=== PATIENT | male | born 1980 | race Caucasian/White ===

== ENCOUNTER 2019-02-28 14:26 | Emergency (ER) | payer OTHER ==
[2019-02-28 15:04] VITALS: BP 139/89; PULSE 97; RESP 16; TEMP 98.4
[2019-02-28] MEDS ORDERED: SODIUM CHLORIDE 0.9% 1,000 ML IV ONE (15:42)
--- NOTE | 2019-02-28 16:03 | CT ---
EXAMINATION TYPE: CT mastoid wo con DATE OF EXAM: 02/28/2019 COMPARISON: None HISTORY: Left sided ear pain. swelling and ringing in ear. CT DLP: 255.4 mGycm. Automated Exposure Control for Dose Reduction was Utilized. TECHNIQUE: CT scan of internal auditory canal and temporal bones is performed without contrast, thin cut axial images are obtained, coronal reformatted images are also reviewed. FINDINGS: The external auditory canals are patent bilaterally. Mastoid air cells show no evidence of abnormal opacification bilaterally. The middle ear ossicles are symmetric and unremarkable. There is no evidence of suspicious surrounding soft tissue density to suggest cholesteatoma. The scutum is preserved bilaterally. The cochlea and the semicircular canals are symmetric and unremarkable. Ves tibular aqueduct and internal carotid canal appear unremarkable. Temporomandibular joints are maintained bilaterally. Visualized paranasal sinuses are grossly clear. Visualized portion brain parenchyma is felt within normal limits. IMPRESSION: No significant abnormality seen to account for patient's symptoms.
[2019-02-28 16:31] LABS: ALT 13 U/L (21-72); AST 23 U/L (17-59); African American GFR (CKD) >90 (>60 ml/min/1.73 sqM); Albumin 3.9 g/dL (3.5-5.0); Alkaline Phosphatase 110 U/L (38-126); Anion Gap 9 mmol/L; Basophils % (A) 0 %; Blood Urea Nitrogen 12 mg/dL (9-20); Calcium 9.3 mg/dL (8.4-10.2); Carbon Dioxide 26 mmol/L (22-30); Chloride 108 mmol/L (98-107); Eosinophils # (A) 0.2 k/uL (0-0.7); Eosinophils % (A) 2 %; Glucose 82 mg/dL (74-99); HCT 40.8 % (39.0-53.0); HGB 13.9 gm/dL (13.0-17.5); Lymphocytes # (A) 1.6 k/uL (1.0-4.8); Lymphocytes % (A) 19 %; MCH 29.2 pg (25.0-35.0); MCHC 34.1 g/dL (31.0-37.0); MCV 85.4 fL (80.0-100.0); Monocytes # (A) 0.7 k/uL (0-1.0); Monocytes % (A) 9 %; Neutrophils # (A) 5.5 k/uL (1.3-7.7); Neutrophils % (A) 67 %; Platelet Count 237 k/uL (150-450); Potassium 4.2 mmol/L (3.5-5.1); RBC 4.78 m/uL (4.30-5.90); RDW 14.4 % (11.5-15.5); Sodium 143 mmol/L (137-145); Total Bilirubin 0.7 mg/dL (0.2-1.3); Total Protein 6.4 g/dL (6.3-8.2); WBC 8.2 k/uL (3.8-10.6)
--- NOTE | 2019-02-28 16:40 | ED ---
General Adult HPI - General Chief complaint: Nausea/Vomiting/Diarrhea Stated complaint: Headache/Vomiting Time Seen by Provider: 02/28/19 15:05 Source: patient Mode of arrival: wheelchair Limitations: no limitations - History of Present Illness Initial comments: 38-year-old male presenting for left ear pain. Patient states that he was diagnosed with the external ear infection and placed on Ciprodex 3 days prior. He states the swelling of the external ear has gone down. He states the pain still persists. He states it is not a headache he states it is pain of the head. He states that there is only pain localized to the posterior ear. He states that this has caused him to feel dizzy at times especially with rapid movement of the head. He states this causes him to vomit on occasion. She denies any headache neck stiffness. He denies any photophobia or uncontrolled vomiting. Patient denies any fevers. Patient states that his left hearing appears slightly muffled in a person with the right remaining review of systems negative upon arrival patient is afebrile appearing well signs of acute distress. Patient does not appear toxic. - Related Data Home Medications Medication Instructions Recorded Confirmed [id number] 1 tab PO Q6HR PRN 02/28/19 02/28/19 [Excedrin] Baclofen 10 mg PO QID 02/28/19 02/28/19 DULoxetine HCL [Cymbalta] 30 mg PO BID 02/28/19 02/28/19 Ibuprofen [Motrin] 800 mg PO TID PRN 02/28/19 02/28/19 Previous Rx's Medication Instructions Recorded Amoxicillin 500 mg PO Q12HR 10 Days #20 cap 02/28/19 Meclizine [Antivert] 25 mg PO BID 10 Days #20 tab 02/28/19 Ondansetron Odt [Zofran Odt] 4 mg PO Q8HR PRN 7 Days #21 tab 02/28/19 Allergies Allergy/AdvReac Type Severity Reaction Status Date / Time pseudoephedrine Allergy Unknown Verified 02/28/19 16:05 [From Timo] PAPER TAPE Allergy Rash/Hives Uncoded 02/28/19 16:08 Review of Systems ROS Statement: Those systems with pertinent positive or pertinent negative responses have been documented in the HPI. ROS Other: All systems not noted in ROS Statement are negative. Past Medical History Past Medical History: No Reported History History of Any Multi-Drug Resistant Organisms: None Reported Past Surgical History: Orthopedic Surgery, Tonsillectomy Past Psychological History: No Psychological Hx Reported Smoking Status: Never smoker Past Alcohol Use History: None Reported Past Drug Use History: None Reported General Exam - General Exam Comments Initial Comments: General: The patient is awake and alert, in no distress, and does not appear acutely ill. Eye: +3 mm pupils are equal, round and reactive to light, extra-ocular movements are intact. No nystagmus. There is normal conjunctiva bilaterally. No signs of icterus. No photophobia Ears, nose, mouth and throat: There are moist mucous membranes and no oral lesions. Oropharynx was not erythematous there is no tonsillar enlargement exudates or lesions. Uvula midline. Tympanic membranes are not erythematous or is no effusions bulging or retraction. Tenderness to patient the left mastoid. No evidence of swelling of the mastoid. Patient has external auditory canal drainage. Swelling. No external erythema or surrounding cellulitis of the ear. No anterior cervical lymphadenopathy. Rhinorrhea, clear and bilateral nares. No tripoding, no drooling. Neck: The neck is supple, there is no tenderness or JVD. No nuchal rigidity negative Brudzinski and Kernig Cardiovascular: There is a regular rate and rhythm. No murmur, rub or gallop is appreciated. Respiratory: Lungs are clear to auscultation, respirations are non-labored, breath sounds are equal. No wheezes, stridor, rales, or rhonchi. No retractions or abdominal breathing. Gastrointestinal: Soft, non-distended, non-tender abdomen without masses or organomegaly noted. There is no rebound or guarding present. Bowel sounds are unremarkable. Musculoskeletal: Normal ROM, no tenderness. Strength 5/5. Sensation intact. Radial pulses equal bilaterally 2+. Neurological: A&O x 3. CN II-XII intact, There are no obvious motor or sensory deficits. Coordination appears grossly intact. Speech appears normal, no muffling. Skin: Skin is warm and dry and no rashes or lesions are noted. No extremity edema Psychiatric: Cooperative Limitations: no limitations Course Vital Signs 02/28/19 15:01 Temperature 98.4 F Pulse Rate 97 Respiratory 16 Rate Blood Pressure 139/89 O2 Sat by Pulse 97 Oximetry Medical Decision Making - Medical Decision Making 38-year-old male presenting for left ear pain. Patient states he has not developed vertigo with some vomiting on occasion. Patient is no focal neurological deficits. Patient appears well. CT of the mastoid was obtained given tenderness to patient over the left mastoid. No evidence of mastoiditis. Patient denies fever afebrile upon arrival nontoxic. I do have low suspicion. However patient's examination of the extraocular canal reveals edema. Patient denies history of diabetes. There is a small amount of drainage. Patient states as improving with Ciprodex. Limited view of the tympanic membrane however visualized portion is not erythematous. Patient was evaluated by my attending provider Dr. Gary who at this time we feel patient is stable for discharge with outpatient primary care and ENT follow-up. We'll give patient an oral antibiotic as well as Antivert and Zofran for vertigo mostly secondary to the ear infection. Patient is agreeable to this care plan at discharge at this time. Patient is discharged appearing well - Lab Data Result diagrams: 02/28/19 16:05 02/28/19 16:05 Lab Results 02/28/19 02/28/19 Range/Units 16:05 16:05 WBC 8.2 (3.8-10.6) k/uL RBC 4.78 (4.30-5.90) m/uL Hgb 13.9 (13.0-17.5) gm/dL Hct 40.8 (39.0-53.0) % MCV 85.4 (80.0-100.0) fL MCH 29.2 (25.0-35.0) pg MCHC 34.1 (31.0-37.0) g/dL RDW 14.4 (11.5-15.5) % Plt Count 237 (150-450) k/uL Neutrophils % 67 % Lymphocytes % 19 % Monocytes % 9 % Eosinophils % 2 % Basophils % 0 % Neutrophils # 5.5 (1.3-7.7) k/uL Lymphocytes # 1.6 (1.0-4.8) k/uL Monocytes # 0.7 (0-1.0) k/uL Eosinophils # 0.2 (0-0.7) k/uL Basophils # 0.0 (0-0.2) k/uL Sodium 143 (137-145) mmol/L Potassium 4.2 (3.5-5.1) mmol/L Chloride 108 H (98-107) mmol/L Carbon Dioxide 26 (22-30) mmol/L Anion Gap 9 mmol/L BUN 12 (9-20) mg/dL Creatinine 0.82 (0.66-1.25) mg/dL Est GFR (CKD-EPI)AfAm >90 (>60 ml/min/1.73 sqM) Est GFR (CKD-EPI)NonAf >90 (>60 ml/min/1.73 sqM) Glucose 82 (74-99) mg/dL Calcium 9.3 (8.4-10.2) mg/dL Total Bilirubin 0.7 (0.2-1.3) mg/dL AST 23 (17-59) U/L ALT 13 L (21-72) U/L Alkaline Phosphatase 110 (38-126) U/L Total Protein 6.4 (6.3-8.2) g/dL Albumin 3.9 (3.5-5.0) g/dL Disposition Clinical Impression: Otitis externa, Vertigo Disposition: HOME SELF-CARE Condition: Good Instructions (If sedation given, give patient instructions): Otitis Externa (ED), Ear Infection (ED) Additional Instructions: Please use medication as discussed. Please follow-up with family doctor in the next 2 days, and ENT as discussed. Please return to emergency room if the symptoms increase or worsen or for any other concerns. Prescriptions: Amoxicillin 500 mg PO Q12HR 10 Days #20 cap Meclizine [Antivert] 25 mg PO BID 10 Days #20 tab Ondansetron Odt [Zofran Odt] 4 mg PO Q8HR PRN 7 Days #21 tab PRN Reason: Nausea Is patient prescribed a controlled substance at d/c from ED?: No Referrals: None,Stated [Primary Care Provider] - 1-2 days Raymundo Cristina DO [Doctor of Osteopathic Medicine] - 1-2 days Time of Disposition: 16:39
== END 2019-02-28 16:50 | disposition home or self-care (01) ==
LOC: EC 14:26
DX: H60.92 Unspecified otitis externa, left ear (principal); R42 Dizziness and giddiness; Z79.899 Other long term (current) drug therapy; Z88.8 Allergy status to other drugs, medicaments and biological substances; Z91.048 Other nonmedicinal substance allergy status
CPT/HCPCS: 36415; 70486; 80053; 85025; 96360; 99284